=== PATIENT | female | born 1985 | race Two or more races ===

== ENCOUNTER 2024-09-12 11:37 | Emergency (ER) | payer OTHER ==
[~2024-09-12] VITALS: Ht 165.1 cm; Wt 77.1 kg
[2024-09-12 12:56] VITALS: BP 128/86; O2SAT 100
[2024-09-12 14:44] LABS: PH,URINE 5.5 (5.0-8.0); URINE APPEARANCE Clear; URINE BILIRRUBIN Negative (NEGATIVE); URINE BLOOD Large; URINE COLOR Yellow; URINE GLUCOSE Negative (NEGATIVE); URINE LEUKOCYTE Negative; URINE NITRATE Negative; URINE PROTEIN Negative (NEGATIVE); URINE UROBILINOGEN 0.2 E.U./dl
[2024-09-12 14:45] LABS: HEMATOCRIT 37.2 % (36.0-45.00); HEMOGLOBIN 12.1 g/dL (12.0-15.00); MEAN CELL VOLUME 79.6 fL (80.00-100.00); MEAN CORPUSCULAR HEMOGLOBIN 25.9 pg (27.00-32.0); MEAN CORPUSCULAR HGB CONC 32.6 g/dl (32.0-36.0); PLATELET COUNT 386 K/uL (150-450); RED BLOOD COUNT 4.67 M/uL (4.00-6.00); RED CELL DISTRIBUTION WIDTH 16.9 % (11.5-14.5)
[2024-09-12 14:45] LABS: URINE EPITHELIAL CELLS 7.7 uL (0.0-38.8); URINE RBC 13.2 uL (0.0-20.8); URINE WBC 7.2 uL (0.0-23.2)
[2024-09-12 15:09] LABS: URINE CAST 0.14 uL (0.0-1.40); URINE KETONE 80 (NEGATIVE)
== END 2024-09-12 15:45 | disposition home or self-care (01) ==
LOC: ER 11:40
PROVIDERS: General Practice
DX: O20.8 Other hemorrhage in early pregnancy (principal); Z3A.01 Less than 8 weeks gestation of pregnancy; Z91.013 Allergy to seafood

== ENCOUNTER → 2025-06-14 07:19 | Outpatient (CLI) | payer OTHER | END | disposition home or self-care (01) | LOC: PRENATAL 07:19 | PROVIDERS: ATTEND Obstetrics & Gynecology Maternal & Fetal Medicine | DX: O36.80X0 Pregnancy with inconclusive fetal viability, not applicable or unspecified (principal); Z36.82 Encounter for antenatal screening for nuchal translucency; Z14.8 Genetic carrier of other disease; O09.521 Supervision of elderly multigravida, first trimester; Z3A.14 14 weeks gestation of pregnancy ==